=== PATIENT | female | born 1955 | race Caucasian/White ===

== ENCOUNTER 2017-10-01 18:21 | Inpatient (IN) ==
[2017-10-01] MEDS ORDERED: *HR* OxyCODONE Immed Rel 5 MG TABLET PO PRN (23:55)
[2017-10-01] MEDS ORDERED: Naloxone 0.4 MG/ML INJ IVP PRN (23:55)
[2017-10-01] MEDS ORDERED: Ondansetron 4 MG/2 ML VIAL IVP PRN (23:55)
[2017-10-01] MEDS ORDERED: *HR* Morphine 2 MG/ML SYRINGE IVP PRN (23:55)
[2017-10-01] MEDS ORDERED: Ibuprofen 400 MG TABLET PO PRN (23:55)
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
[2017-10-02] MEDS: dilTIAZem HCl 100 MG in D5% in Water 50 ML IVC SCH ×2 (00:36→09:19)
[2017-10-02] MEDS ORDERED: 0.9 % Sodium Chloride 1,000 ML ONE (03:19)
[2017-10-02 03:24] LABS: Basophils # 0.1 K/mcL (0.0-0.2); Eosinophils # 0.3 K/mcL (0.0-0.6); Eosinophils % 3.3 %; Hematocrit 42.2 % (35.3-44.9); Hemoglobin 13.9 g/dL (11.5-15.4); Immature Granulocytes % 0.2 % (0-4); Lymphocytes # 3.6 K/mcL (0.6-4.6); Lymphocytes % 38.5 %; Mean Corpuscular HGB Conc 32.9 g/dL (31.6-35.5); Mean Corpuscular Hemoglobin 28.4 pg (28.0-33.3); Mean Corpuscular Volume 86.1 fL (83.0-100.0); Mean Platelet Volume 8.9 fL (9.4-12.4); Monocytes # 0.8 K/mcL (0.0-1.3); Monocytes % 8.8 %; Neutrophils # 4.5 K/mcL (1.6-8.9); Platelet Count 283 K/mcL (140-400); Red Cell Distribution Width 13.8 % (11.5-14.5); Segmented Neutrophils % 48.2 %
[2017-10-02 03:42] LABS: BUN/Creatinine Ratio 13 (6-26); Blood Urea Nitrogen 10 mg/dL (7-20); Calcium 9.6 mg/dL (8.6-10.8); Carbon Dioxide 23 mEq/L (19-29); Chloride 108 mEq/L (98-109); Chol/HDL Ratio 5.7 (0-4.9); Cholesterol 252 mg/dL (< 200); Glucose 104 mg/dL (70-99); HDL Cholesterol 44 mg/dL (40-59); LDL Cholesterol,Calculated 147 mg/dL (0-99); Magnesium 2.3 mg/dL (1.6-2.6); Osmolality,Calculated 289 (280-300); Sodium 140 mEq/L (136-145); Triglycerides 304 mg/dL (< 150); eGFR For African Americans > 60 (> 60); eGFR For Non-African Americans > 60 (> 60)
[2017-10-02 03:45] LABS: Potassium 4.1 mEq/L (3.5-4.5)
[2017-10-02] MEDS ORDERED: *HR* Enoxaparin 40 MG/0.4 ML SYRINGE SQ SCH (06:00)
[2017-10-02] MEDS ORDERED: Acetaminophen 325 MG TABLET PO PRN (07:54)
[2017-10-02] MEDS ORDERED: Diltiazem CD (24hr) 120 MG CAPSULE PO SCH (09:00)
[2017-10-02] MEDS: Aspirin 81 MG TAB.CHEW PO SCH (09:18)
--- NOTE | 2017-10-02 14:11 | Cardiology Consult Note ---
Date of Encounter: 10/02/17 Time of Encounter: 13:30 Assessment and Plan (1) Atrial flutter with rapid ventricular response Current Visit: No Status: Acute Per cardiology: -Admitted with palpitations, known history of atrial flutter. -Average HR 90, atrial flutter. -Symptomatic with palpitations and dyspnea on exertion. -[id number] score 2 (gender, HTN). Recommend long-term anticoagulation. Patient agreeable. States has previously only been on asa. -Currently on cardizem drip at 7.5mg/hour. -TTE with LVEF 55%, no significant valvular dysfunction, all darden with normal motion. -[facility] 2014 with all arteries angiographically free of disease. -Will switch cardizem drip to cardizem po. -Will rubin check eliquis for patient. -Can consider EP consult in am. Discussion w patient/family: The assessment and plan as outlined above was discussed with the patient who expressed understanding and agreement. All questions were answered. Thank you for involving us in the care of your patient. Please call with any questions. Discussed and reviewed with . History of Present Illness Consult date: 10/02/17 Requesting physician: Génesis Travis Consult reason: atrial flutter with RVR Chief complaint: palpitations History of present illness: Ms. Arzate is a 61 year old female with a relevant past medical history of atrial flutter s/p ablation 2014, HTN, hyperlipidemia, depression. Patient presented to [facility] with palpitations. Patient states that she has a history of atrial fibrillation/flutter and lately she has noticed some increase in palpitations. She follows with Dr.John Roper in the outpatient setting who started her back on cardizem recently. Patient states her normal palpitations last for a few seconds and then resolve. Patient states episode yesterday did not resolve. So she presented to ER. Patient reports current palpitations. Patient also reports current dyspnea on exertion. Patient denies chest pain. Past Med Surg Social Fam HX - Past Medical History Attestation: Yes The following information was validated with the patient. Source: patient, old records reviewed Medical history: atrial fibrillation, hyperlipidemia, hypertension Psychiatric history: depression - Past Surgical History Surgical History: appendectomy, hysterectomy - Social History Smoking Status: Former smoker Smokeless Tobacco Status: No Alcohol use: none Drug use: none - Family History Father Living Status: Age at : 73 Cause of : Non Hodgkins Lymphoma Hx Family Cardiac Disorders: Yes (HTN) Hx Family Respiratory Disorders: No Hx Family Cancer: Yes (Non hodgkins lymphoma) Hx Family GI Disorders: No Hx Family Genitourinary Disorders: No Hx Family Endocrine Disorder: No Hx Family Musculoskeletal Disorders: No Hx Family Neuromuscular Disorders: No Hx Family Neurologic Disorders: No Hx Family HEENT Disorders: No Hx Family Autoimmune Disorders: No Hx Family Reproductive Disorders: No Hx Family Psychosocial Disorders: No Hx Family Medical Disorders: No Medications and Allergies Sertraline [Zoloft] 50 - 100 mg PO HS 08/09/15 [History] Diltiazem HCl [Diltiazem 24Hr Cd] 120 mg PO DAILY 10/27/15 [History] 3 Allergy/AdvReac Type Severity Reaction Status Date / Time dextromethorphan AdvReac Hypertensio Verified 08/09/15 20:33 [From NyQuil] n doxylamine [From NyQuil] AdvReac Hypertensio Verified 08/09/15 20:33 n duloxetine [From Cymbalta] AdvReac Hypertensio Verified 08/09/15 20:01 n gabapentin AdvReac Hypertensio Verified 10/27/15 07:33 n pseudoephedrine [From NyQuil] AdvReac Hypertensio Verified 08/09/15 20:33 n All Systems Review: A 10-system review of systems was performed and is negative for pertinent findings except as documented above in the HPI. - Cardiovascular Cardiovascular: as per HPI, dyspnea on exertion, irregular heart rhythm, palpitations Physical Examination Vital Signs, Last 4 Hours Temp Pulse Resp BP Pulse Ox 10/02/17 11:07 97.6 F 86 17 111/54 93 General: Conversant, No Apparent Distress HEENT: Atraumatic, Normocephaly, Mucus Membranes Moist Neck: No JVD, Normal carotid pulses Cardiac: Normal S1 and S2, No Murmur, Other (Irregularly irregular) Lungs: Normal Breath Sounds, No Wheeze, Rales, Rhonchi Neuro: Alert and responsive, No focal deficits noted Abdomen: Soft, Non-Tender Skin: No rashes noted on visualized skin Musculoskeletal: No Chest Wall Tenderness Extremities: No Clubbing, No Cyanosis, No Edema, Normal Pulses Results 10/02/17 03:12 10/02/17 03:12 Lab Results Impressions Echocardiogram 10/02/17 08:51 Impressions: Atrial flutter. LVEF 55%. Normal LV chamber size, wall thickness and function. Normal right ventricular structure and function. Indeterminate diastolic function. No evidence of pulmonary hypertension. No significant valvular dysfunction. Left Ventricular Wall Motion: Rest Echo Findings All wall segments showed normal motion. Findings: Study Quality * Technically adequate exam. ECG Findings * Atrial flutter. Left Ventricle * LVEF 55%. * Normal LV chamber size, wall thickness and function. * Indeterminate diastolic function. Right Ventricle * Normal right ventricular structure and function. Left Atrium * Mildly dilated left atrium. Right Atrium * Normal right atrial size. Interatrial Septum * Interatrial septum not well evaluated. Aortic Valve * Trileaflet aortic valve with normal function. * No aortic regurgitation. * No aortic stenosis. Mitral Valve * Mild mitral annular calcification. * Trace mitral regurgitation. * No mitral stenosis. Tricuspid Valve * Normal tricuspid valve structure and function. * Trace tricuspid regurgitation. * No evidence of pulmonary hypertension. Pulmonic Valve * Normal pulmonic valve structure and function. * No pulmonic regurgitation. Aorta * Normally sized aortic root. Pericardium * The pericardium appears normal. IVC * Normal IVC dimensions and inspiratory collapse. Pulmonary Artery * Normal visualized portions of the main pulmonary artery. Chest CT 10/02/17 08:52 IMPRESSION: 1. Calcified left upper lobe nodule secondary to remote granulomatous disease. 2. Small, 3 mm or less nodules left upper lobe abutting the major fissure. In a low risk patient the nodules require no further CT investigation. Refer to Fleischner criteria as below. 3. Fatty liver. 4. Cholelithiasis. RECOMMENDATIONS: Fleischner Society guidelines for follow-up and management of incidentally detected pulmonary nodules: Multiple Solid Nodules: Nodule size less than 6 mm In a low-risk patient, no routine follow-up. In a high-risk patient, optional CT at 12 months. - Low risk patients include individuals with minimal or absent history of smoking and other known risk factors. - High risk patients include individuals with a history or smoking or known risk factors. Radiology 2017 http://pubs.rsna.org/doi/full/10.1148/radiol.3638388815 D/ / 10/02/2017 10:54:13 Ahmet Zarate MD / [email or web address] Interpreting Provider: Ahmet Zarate MD Active Medications Acetaminophen (Tylenol) 650 mg PO Q6HR PRN PRN Reason: Mild Pain (1-3) Stop: 04/03/18 07:55 Aspirin (Aspirin) 81 mg PO DAILY [facility] Stop: 04/03/18 09:01 Last Admin: 10/02/17 09:18 Dose: 81 mg Diltiazem HCl (Cardizem Cd) 120 mg PO DAILY [facility] Stop: 04/03/18 09:01 Last Admin: 10/02/17 09:18 Dose: 120 mg Enoxaparin Sodium (Lovenox) 40 mg SQ 0600 [facility] PRN Reason: Protocol Stop: 04/03/18 06:01 Last Admin: 10/02/17 05:50 Dose: 40 mg Diltiazem HCl 100 mg/ Dextrose 50 mls @ 5 mls/hr IVC .Q10H LUPIS PRN Reason: 10 MG/HR Stop: 04/02/18 23:46 Last Infusion: 10/02/17 13:18 Dose: 7.5 mg/hr, 3.75 mls/hr Naloxone HCl (Narcan) 0.4 mg IVP Q2MIN PRN PRN Reason: Opioid Reversal Stop: 04/02/18 23:56 Ondansetron HCl (Zofran) 4 mg IVP Q8HR PRN PRN Reason: Nausea And Vomiting Stop: 04/02/18 23:56 Oxycodone HCl (Roxicodone) 5 mg PO Q6HR PRN PRN Reason: Moderate Pain (4-6) Stop: 04/02/18 23:56 Sertraline HCl (Zoloft) 50 mg PO HS [facility] Stop: 04/03/18 21:01 - Imaging and Cardiology Chest Xray: report reviewed Echo: report reviewed Cardiac cath: report reviewed - EKG Interpretation EKG results cardiology: personally reviewed (ECG with atrial flutter with RVR, HR 132.), other (Telemetry reviewed with average HR previous 12 hours noted to be 90, atrial flutter. Longest pause 2.4 seconds. PVCs noted.) Consult Discharge Plan - Plan Referrals: Cordell Hayes MD [Primary Care Provider] -
[2017-10-02] MEDS ORDERED: Diltiazem CD (24hr) 180 MG CAPSULE PO ONE (14:22)
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
--- NOTE | 2017-10-02 16:31 | Event Note ---
Date of Encounter: 10/02/17 Time of Encounter: 16:30 - Cardiology Event Note Reynolds check for NOACs return as eliquis $386/month and xarelto $386.05/month. Anticipate will need coumadin. Currently on lovenox.
[2017-10-02] MEDS: *HR* Enoxaparin 150 MG/ML SYRINGE SQ SCH (18:53)
[2017-10-03 05:53] LABS: Thyroid Stimulating Hormone 3.748 mcIU/mL (0.350-4.840)
[2017-10-03] MEDS: *HR* Enoxaparin 150 MG/ML SYRINGE SQ SCH ×2 (06:02→18:37)
[2017-10-03] MEDS: Aspirin 81 MG TAB.CHEW PO SCH (07:59)
[2017-10-03] MEDS ORDERED: Diltiazem CD (24hr) 300 MG CAPSULE PO SCH (09:00)
--- NOTE | 2017-10-03 09:44 | Electrophysiology Consult Note ---
Date of Encounter: 10/03/17 Time of Encounter: 09:43 Assessment and Plan (1) Atrial flutter with rapid ventricular response Current Visit: No Status: Acute Per Electrophysiology: -Admitted with atrial flutter with RVR. HR continues to be in the 130's despite cardizem gtt and increase in oral cardizem. -Symptomatic with palpitations and dyspnea on exertion. -History of emperic ablation of atrial flutter in 2014. H/o atrial flutter and afib. -[id number] score 2 (gender, HTN). Recommend half-way anticoagulation. NOAC vs warfarin discussed. NOAC rubin checked and cost 385$. Patient agreeable to warfarin. Start coumadin with pharmacy to dose. -TTE with LVEF 55%, no significant valvular dysfunction, all darden with normal motion. -[facility] 2014 with all arteries angiographically free of disease. -Increase cardizem to 360 mg daily. Patient very symptomatic with her atrial flutter. I will discuss rhythm control options with Dr. Jacoby Roper. Discussion w patient/family: The assessment and plan as outlined above was discussed with the patient and/or family members who expressed understanding and agreement. All questions were answered. Thank you for involving us in the care of your patient. Please call with any questions. History of Present Illness Consult date: 10/03/17 Requesting physician: Kvng Davis History of present illness: Ms. Arzate is a 61 year old female with a history of atrial flutter s/p ablation 2014, HTN, hyperlipidemia, depression who presented with palpitations and dyspnea on exertion. She was found to be in atrial flutter with RVR. She follows at [facility] with Dr.John Roper. She was recently started back on oral cardiam. During her hospital stay her oral cardizem was increased from 120 mg daily to 300 mg daily. She continues to have atrial flutter with RVR. Electrophysiology consulted for further recommendations. Past Med Surg Social Fam HX - Past Medical History Medical history: atrial fibrillation, hyperlipidemia, hypertension Psychiatric history: depression - Past Surgical History Surgical History: appendectomy, hysterectomy - Social History Smoking Status: Former smoker Smokeless Tobacco Status: No Alcohol use: none Drug use: none - Family History Father Living Status: Age at : 73 Cause of : Non Hodgkins Lymphoma Hx Family Cardiac Disorders: Yes (HTN) Hx Family Respiratory Disorders: No Hx Family Cancer: Yes (Non hodgkins lymphoma) Hx Family GI Disorders: No Hx Family Genitourinary Disorders: No Hx Family Endocrine Disorder: No Hx Family Musculoskeletal Disorders: No Hx Family Neuromuscular Disorders: No Hx Family Neurologic Disorders: No Hx Family HEENT Disorders: No Hx Family Autoimmune Disorders: No Hx Family Reproductive Disorders: No Hx Family Psychosocial Disorders: No Hx Family Medical Disorders: No Medications and Allergies Sertraline [Zoloft] 50 - 100 mg PO HS 08/09/15 [History] Diltiazem HCl [Diltiazem 24Hr Cd] 120 mg PO DAILY 10/27/15 [History] 3 Allergy/AdvReac Type Severity Reaction Status Date / Time dextromethorphan AdvReac Hypertensio Verified 08/09/15 20:33 [From NyQuil] n doxylamine [From NyQuil] AdvReac Hypertensio Verified 08/09/15 20:33 n duloxetine [From Cymbalta] AdvReac Hypertensio Verified 08/09/15 20:01 n gabapentin AdvReac Hypertensio Verified 10/27/15 07:33 n pseudoephedrine [From NyQuil] AdvReac Hypertensio Verified 08/09/15 20:33 n All Systems Review: A 10-system review of systems was performed and is negative for pertinent findings except as documented above in the HPI. Physical Examination Vital Signs, Last 4 Hours Temp Pulse Resp BP Pulse Ox 10/03/17 07:18 97.5 F L 79 15 112/65 93 General: Conversant, No Apparent Distress HEENT: Atraumatic, Normocephaly, Mucus Membranes Moist Neck: No JVD, Normal carotid pulses Cardiac: Other (irregularly irregular) Lungs: Normal Breath Sounds, No Wheeze, Rales, Rhonchi Neuro: Alert and responsive, No focal deficits noted Abdomen: Soft, Non-Tender Skin: No rashes noted on visualized skin Musculoskeletal: No Chest Wall Tenderness Extremities: No Clubbing, No Cyanosis, No Edema, Normal Pulses Results 10/02/17 03:12 10/02/17 03:12 Lab Results 10/02/17 03:12 Sodium 140 Potassium 4.1 Chloride 108 Carbon Dioxide 23 BUN 10 Creatinine 0.78 Glucose 104 H Calcium 9.6 Magnesium 2.3 TSH 3.748 Echocardiogram 10/02/17 08:51 Impressions: Atrial flutter. LVEF 55%. Normal LV chamber size, wall thickness and function. Normal right ventricular structure and function. Indeterminate diastolic function. No evidence of pulmonary hypertension. No significant valvular dysfunction. Left Ventricular Wall Motion: Rest Echo Findings All wall segments showed normal motion. Chest CT 10/02/17 08:52 IMPRESSION: 1. Calcified left upper lobe nodule secondary to remote granulomatous disease. 2. Small, 3 mm or less nodules left upper lobe abutting the major fissure. In a low risk patient the nodules require no further CT investigation. Refer to Fleischner criteria as below. 3. Fatty liver. 4. Cholelithiasis. - Imaging and Cardiology Echo: report reviewed - EKG Interpretation EKG results cardiology: personally reviewed Consult Discharge Plan - Plan Referrals: Cordell Hayes MD [Primary Care Provider] -
[2017-10-03] MEDS ORDERED: Diltiazem SR (12hr) 60 MG CAPSULE PO ONE (11:00)
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
[2017-10-03] MEDS ORDERED: Warfarin perPT PO PRN (18:00)
[2017-10-03] MEDS ORDERED: *HR* Warfarin 5 MG TABLET PO SCH (18:00)
[2017-10-03] MEDS ORDERED: 0.9 % Sodium Chloride 1,000 ML ONE (21:16)
[2017-10-04] MEDS ORDERED: 0.9 % Sodium Chloride 1,000 ML ONE (00:24)
[2017-10-04] MEDS ORDERED: 0.9 % Sodium Chloride 1,000 ML IVC ONE (00:26)
[2017-10-04 03:49] LABS: INR 1.1; Prothrombin Time 11.5 Seconds (9.4-12.1)
[2017-10-04] MEDS: *HR* Enoxaparin 150 MG/ML SYRINGE SQ SCH ×2 (06:16→17:46)
[2017-10-04] MEDS ORDERED: Diltiazem CD (24hr) 300 MG CAPSULE PO SCH (09:00)
[2017-10-04] MEDS ORDERED: Diltiazem CD (24hr) 240 MG CAPSULE PO SCH (09:00)
--- NOTE | 2017-10-04 10:47 | Cardiology Progress Note ---
Date of Encounter: 10/04/17 Time of Encounter: 10:45 Assessment and Plan (1) Atrial flutter with rapid ventricular response Current Visit: No Status: Acute Per Electrophysiology: -Admitted with atrial flutter with RVR. Symptomatic with palpitations and dyspnea on exertion. -History of emperic ablation of atrial flutter in 2014. H/o atrial flutter and afib. -TTE with LVEF 55%, no significant valvular dysfunction, all darden with normal motion. -[facility] 2014 with all arteries angiographically free of disease. -EP consulted and sotalol therapy recommended. S/p one dose of sotalol. -Remains in atrial flutter. Now rate controlled. Avg HR over night was 69 bpm. HR seen as low as 30 BPM last night. Cardizem was discontinued and patient given fluid bolus with improvement. HR currently 72 bpm. -EKG today SR with HR 70. QT/QTc 422/443. QTc 109. -Recommend to continue sotalol therapy. D/c cardizem as recommended. Discussed with Dr. Roper. Monitor for five doses. If she converts to NSR or is rate controlled she can be discharged after her 5th dose. -[id number] score 2 (gender, HTN). Recommend half-way anticoagulation. NOAC vs warfarin discussed. NOAC rubin checked and cost 385$. Patient agreeable to warfarin. Pharmacy dosing coumadin. On lovenox injection. Discussion w patient/family: The assessment and plan as outlined above was discussed with the patient and/or family members who expressed understanding and agreement. All questions were answered. Thank you for involving us in the care of your patient. Please call with any questions. Subjective Principal diagnosis: atrial flutter Interval history: Ms. Arzate developed atrial flutter with slow ventricular response last night. Sotalol was held early this morning. Cardizem discontinued. Patient denied symptoms. Objective Vital Signs, Last 4 Hours Temp Pulse Resp BP Pulse Ox 10/04/17 09:59 94 10/04/17 07:18 97.5 F L 68 16 106/53 94 General: Conversant, No Apparent Distress HEENT: Atraumatic, Normocephaly, Mucus Membranes Moist Neck: No JVD, Normal carotid pulses Cardiac: Other (Irregularly irregular) Lungs: Normal Breath Sounds, No Wheeze, Rales, Rhonchi Neuro: Alert and responsive, No focal deficits noted Abdomen: Soft, Non-Tender Skin: No rashes noted on visualized skin Musculoskeletal: No Chest Wall Tenderness Extremities: No Clubbing, No Cyanosis, No Edema, Normal Pulses Other: hardy catheter intact with straw color urine. Results 10/02/17 03:12 10/02/17 03:12 Lab Results 10/04/17 03:19 INR 1.1 - Imaging and Cardiology Echo: report reviewed - EKG Interpretation EKG results cardiology: personally reviewed Consult Discharge Plan - Plan Referrals: Cordell Hayes MD [Primary Care Provider] - 10/09/17 11:45 am (WEB REQUEST SENT ON 10/03/17)
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
[2017-10-04] MEDS: *HR* Warfarin 5 MG TABLET PO SCH (17:46)
--- NOTE | 2017-10-04 18:47 | Electrocardiograph Report ---
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
--- NOTE | 2017-10-04 19:04 | Electrocardiograph Report ---
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
[2017-10-05] MEDS: *HR* Enoxaparin 150 MG/ML SYRINGE SQ SCH ×2 (05:51→17:27)
[2017-10-05 06:54] LABS: INR 1.1; Prothrombin Time 11.6 Seconds (9.4-12.1)
--- NOTE | 2017-10-05 07:56 | Cardiology Progress Note ---
Date of Encounter: 10/05/17 Time of Encounter: 07:55 Assessment and Plan (1) Atrial flutter with rapid ventricular response Current Visit: No Status: Acute Per Cardiology: H/o atrial flutter and afib. History of ablation of atrial flutter in 2014. Admitted with atrial flutter with RVR. Symptomatic with palpitations and dyspnea on exertion. TTE with LVEF 55%, no significant valvular dysfunction, all darden with normal motion. [facility] 2014 with all arteries angiographically free of disease. S/p 3 doses of sotalol 80mg PO BID. Remains atrial flutter. Now rate controlled 80-90's. Avg HR overnight was 110 bpm. Cardizem off. EKG today shows QT/QTc= 361 /411ms. Recommend to continue sotalol therapy. If she converts to NSR or is rate controlled she can be discharged after her 5th dose. [id number] score 2 (gender, HTN). Now on halfway anticoagulation. Pharmacy dosing coumadin. On lovenox injection. Discussion w patient/family: The assessment and plan as outlined above was discussed with the patient who expressed understanding and agreement. All questions were answered. Thank you for involving us in the care of your patient. Please call with any questions. Subjective Principal diagnosis: atrial flutter Interval history: Denies any concerns or complaints. Reports this is the best she slept during the hospital stay. Denies any chest pain, short of breath, palpitations. Denies any active bleeding or blood loss. Objective Vital Signs, Last 4 Hours Temp Pulse Resp BP Pulse Ox 10/05/17 07:40 98 10/05/17 07:04 97.6 F 82 13 118/79 98 10/05/17 04:25 98.3 F 84 16 106/69 94 General: Conversant, No Apparent Distress Cardiac: No Murmur, Other (Irregularly irregular) Lungs: Normal Breath Sounds, No Wheeze, Rales, Rhonchi Neuro: Alert and responsive, No focal deficits noted Skin: No rashes noted on visualized skin Extremities: No Edema Results 10/02/17 03:12 10/02/17 03:12 Lab Results 10/05/17 06:01 INR 1.1 Active Medications Acetaminophen (Tylenol) 650 mg PO Q6HR PRN PRN Reason: Mild Pain (1-3) Stop: 04/03/18 07:55 Enoxaparin Sodium (Lovenox) 130 mg 1 mg/kg (130 mg) SQ Q12HR LUPIS PRN Reason: Protocol Stop: 04/03/18 18:01 Last Admin: 10/05/17 05:51 Dose: 130 mg Naloxone HCl (Narcan) 0.4 mg IVP Q2MIN PRN PRN Reason: Opioid Reversal Stop: 04/02/18 23:56 Ondansetron HCl (Zofran) 4 mg IVP Q8HR PRN PRN Reason: Nausea And Vomiting Stop: 04/02/18 23:56 Oxycodone HCl (Roxicodone) 5 mg PO Q6HR PRN PRN Reason: Moderate Pain (4-6) Stop: 04/02/18 23:56 Sertraline HCl (Zoloft) 50 mg PO HS [facility] Stop: 04/03/18 21:01 Last Admin: 10/04/17 20:01 Dose: 50 mg Sotalol HCl (Betapace) 80 mg PO Q12H [facility] Stop: 04/05/18 10:31 Last Admin: 10/04/17 22:24 Dose: 80 mg Warfarin Sodium (Coumadin Perpt) 1 each PO DAILY@1800 PRN PRN Reason: SEE COMMENTS Stop: 04/04/18 18:01 Warfarin Sodium (Coumadin) 5 mg PO DAILY@1800 LUPIS Stop: 04/05/18 18:01 Last Admin: 10/04/17 17:46 Dose: 5 mg - EKG Interpretation EKG results cardiology: other (Telemetry shows atrial flutter in the 90s, average heart rate passed 12 hours 110) Consult Discharge Plan - Plan Referrals: Cordell Hayes MD [Primary Care Provider] - 10/09/17 11:45 am (WEB REQUEST SENT ON 10/03/17)
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
--- NOTE | 2017-10-05 11:52 | Event Note ---
Date of Encounter: 10/05/17 Time of Encounter: 11:50 - Cardiology Event Note Notified by RN of elevated heart rate 130s. Telemetry reviewed shows a flutter in the 130s. Will resume Cardizem-- Cardizem 30 mg by mouth every 6 hours. Will monitor heart rate and blood pressure. Current systolic blood pressure in the 110s to 120s.
[2017-10-05] MEDS: *HR* Warfarin 5 MG TABLET PO SCH (17:27)
[2017-10-06 04:22] LABS: INR 1.1; Prothrombin Time 12.4 Seconds (9.4-12.1)
--- NOTE | 2017-10-06 05:52 | Cardiology Progress Note ---
Date of Encounter: 10/06/17 Time of Encounter: 05:50 Assessment and Plan (1) Atrial flutter with rapid ventricular response Current Visit: No Status: Acute Per Cardiology: H/o atrial flutter and afib. History of ablation for atrial flutter in 2014. Admitted with atrial flutter with RVR. Symptomatic with palpitations and dyspnea on exertion. TTE with LVEF 55%, no significant valvular dysfunction, all darden with normal motion. [facility] 2014 with all arteries angiographically free of disease. S/p 5 doses of Sotalol 80mg PO BID and on Cardizem 30mg PO every 6 hrs. Avg HR past 12 hrs 71bpm. Now SR in the 60's. We'll convert to Cardizem CD 120 mg by mouth daily. SBP stable in the 100's. EKG today shows SR 60's QT/QTc= 426/ 426ms. Will s/o, re-consult PRN, f/u scheduled. Vgmte2blit score 2 (gender, HTN). Now on Coumadin and Lovenox. INR 1.1. [facility] will follow INR as outpatient-- office notified, check INR in 3 days. Will discuss with Dr. Henderson need for Lovenox bridging (converted from aflutter to SR during stay)-- patient reports able to give herself injections if needed. Discussion w patient/family: The assessment and plan as outlined above was discussed with the patient who expressed understanding and agreement. All questions were answered. Thank you for involving us in the care of your patient. Please call with any questions. Subjective Principal diagnosis: atrial flutter Interval history: Patient denies any chest pain, shortness of breath, palpitations. Reports walked around yesterday evening with no symptoms. Denies any active bleeding or blood loss. Objective Vital Signs, Last 4 Hours Temp Pulse Resp BP Pulse Ox 10/06/17 04:03 97.8 F 65 15 108/70 96 General: Conversant, No Apparent Distress HEENT: Atraumatic, Normocephaly Cardiac: Reg Rate and Rhythm, Normal S1 and S2, No Murmur Lungs: Normal Breath Sounds, No Wheeze, Rales, Rhonchi Neuro: Alert and responsive, No focal deficits noted Extremities: No Edema Results 10/02/17 03:12 10/02/17 03:12 Lab Results 10/05/17 10/06/17 06:01 03:30 INR 1.1 1.1 Active Medications Acetaminophen (Tylenol) 650 mg PO Q6HR PRN PRN Reason: Mild Pain (1-3) Stop: 04/03/18 07:55 Diltiazem HCl (Cardizem) 30 mg PO Q6HR [facility]UPIS Stop: 04/06/18 12:01 Last Admin: 10/05/17 23:36 Dose: 30 mg Enoxaparin Sodium (Lovenox) 130 mg 1 mg/kg (130 mg) SQ Q12HR LUPIS PRN Reason: Protocol Stop: 04/03/18 18:01 Last Admin: 10/05/17 17:27 Dose: 130 mg Naloxone HCl (Narcan) 0.4 mg IVP Q2MIN PRN PRN Reason: Opioid Reversal Stop: 04/02/18 23:56 Ondansetron HCl (Zofran) 4 mg IVP Q8HR PRN PRN Reason: Nausea And Vomiting Stop: 04/02/18 23:56 Oxycodone HCl (Roxicodone) 5 mg PO Q6HR PRN PRN Reason: Moderate Pain (4-6) Stop: 04/02/18 23:56 Sertraline HCl (Zoloft) 50 mg PO HS [facility] Stop: 04/03/18 21:01 Last Admin: 10/05/17 20:32 Dose: 50 mg Sotalol HCl (Betapace) 80 mg PO Q12H [facility] Stop: 04/05/18 10:31 Last Admin: 10/05/17 22:34 Dose: 80 mg Warfarin Sodium (Coumadin Perpt) 1 each PO DAILY@1800 PRN PRN Reason: SEE COMMENTS Stop: 04/04/18 18:01 Warfarin Sodium (Coumadin) 5 mg PO DAILY@1800 [facility] Stop: 04/05/18 18:01 Last Admin: 10/05/17 17:27 Dose: 5 mg - EKG Interpretation EKG results cardiology: other (Telemetry reviewed with average heart rate passed 12 hours 73, slowest 46 during nocturnal hours, currently sinus rhythm in the 60s) Consult Discharge Plan - Plan Referrals: Cordell Hayes MD [Primary Care Provider] - 10/09/17 11:45 am (WEB REQUEST SENT ON 10/03/17)
[2017-10-06] MEDS: *HR* Enoxaparin 150 MG/ML SYRINGE SQ SCH (06:20)
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
[2017-10-06] MEDS ORDERED: Diltiazem CD (24hr) 120 MG CAPSULE PO SCH (09:00)
--- NOTE | 2017-10-06 10:07 | Event Note ---
Date of Encounter: 10/06/17 Time of Encounter: 10:00 - Cardiology Event Note Discussed with Dr. Henderson, recommend Lovenox injections for bridging. Patient will check INR on Saturday and follow with [place] [facility].
[2017-10-06] MEDS ORDERED: FLUARIX QUAD 2017-18 36MOS UP/PF 0.5 ML SYRINGE IM ONE (12:06)
[2017-10-06 12:20] VITALS: BP 124/72
--- NOTE | 2017-10-06 17:55 | Electrocardiograph Report ---
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
--- NOTE | 2017-10-06 17:56 | Electrocardiograph Report ---
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
[2017-10-06] MEDS ORDERED: *HR* Warfarin 7.5 MG TABLET PO ONE (18:00)
--- NOTE | 2017-10-06 18:13 | Electrocardiograph Report ---
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
== END 2017-10-06 13:33 | disposition home or self-care (01) | DRG 309 ==
LOC: 2ANU 20:24 → INTOOBSV 20:24
PROVIDERS: ADMIT Internal Medicine; ATTEND Internal Medicine